=== PATIENT | male | born 2000 | race Caucasian/White ===

== ENCOUNTER 2019-01-01 19:53 | Emergency (ER) | payer BC ==
--- NOTE | 2019-01-01 20:24 | ER Report ---
History and Physical Time Seen By MD: 20:02 Hx. of Stated Complaint: PT WAS RUNNING ABOUT AN HOUR AGO. GOT A SUDDEN ONSET ON PAIN IN LEFT SIDE OF SACK THAT RUNS BACK TOWARDS HIS ANUS HPI/ROS CHIEF COMPLAINT: left testicular pain HISTORY OF PRESENT ILLNESS: 18 year old male presents to ED with left testicular pain. Patient reports he was playing frisbee and was running, jumped up to catch the frisbee, and then felt pain to his left testicle. He reports pain was very rapid onset, pain starts in his left testicle and radiates to his anus, and it hurts worse with movement. Pain started approximately 1 hour prior to coming to the ED. Pain subsides with rest. Patient denies saddle anesthesia, nausea, vomiting, fever. REVIEW OF SYSTEMS: Constitutional: No fever. Respiratory: No cough, no dyspnea. Cardiovascular: No chest pain, no palpitations. Gastrointestinal: No vomiting, no abdominal pain. Genitourinary: No difficulty urinating, no penile discharge, no saddle anesthesia. Musculoskeletal: No back pain. Left testicular pain as noted above. Allergies: Coded Allergies: No Known Drug Allergies (Unverified , 01/01/19) Past Medical/Surgical History Past medical hx significant for left wrist fracture. Past surgical hx significant for tonsillectomy and wisdom teeth removal. Reviewed Nurses Notes: Yes Hx Substance Use Disorder: No Hx Alcohol Use: Yes (SOCIALLY) Constitutional Vital Sign - Last 24 Hours 01/01/19 01/01/19 01/01/19 01/01/19 20:01 20:01 20:08 20:23 Temp 98.5 Pulse 81 ??? 77 Resp 12 B/P (MAP) 133/80 133/80 (97) Pulse Ox 93 94 93 O2 Delivery Room Air 01/01/19 01/01/19 01/01/19 01/01/19 20:30 20:38 20:53 21:00 Pulse ??? 74 B/P (MAP) 113/56 (75) 119/65 (83) Pulse Ox 93 01/01/19 01/01/19 01/01/19 01/01/19 21:08 21:23 21:30 21:38 Pulse ? B/P (MAP) 117/66 (83) Pulse Ox 93 7/6/19 01/01/19 01/01/19 01/01/19 21:43 21:58 22:00 22:13 Pulse ? B/P (MAP) 111/59 (76) Physical Exam General Appearance: The patient is alert, has no immediate need for airway protection and no current signs of toxicity. Eyes: Pupils equal and round no injection. Respiratory: Chest is non tender, lungs are clear to auscultation. Cardiac: regular rate and rhythm Gastrointestinal: Abdomen is soft and non tender, no masses, bowel sounds normal. Genitourinary: No testicular pain with palpation, no femoral lymph node enlargement, no swelling to testes, no lesions to penis. Musculoskeletal: Neck: Neck is supple and non tender. Extremities have full range of motion and are non tender. Skin: No rashes or lesions. DIFFERENTIAL DIAGNOSIS: After history and physical exam differential diagnosis was considered for testicular torsion, muscle strain, epididymitis. Medical Decision Making Data Points Result Diagram: 01/01/19210001/01/192100 Laboratory Hematology Test 01/01/19 20:01 01/01/19 21:01 Urine Color Yellow Urine Clarity Clear Urine pH 6.0 pH (4.8-9.5) Urine Specific [place] 1.014 Urine Protein Negative mg/dL (NEGATIVE) Urine Glucose (UA) Negative mg/dL (NEGATIVE) Urine Ketones Negative mg/dL (NEGATIVE) Urine Blood Negative (NEGATIVE) Urine Nitrite Negative (NEGATIVE) Urine Bilirubin Negative (NEGATIVE) Urine Urobilinogen Negative mg/dL (0.2-1.9) Urine Leukocyte Esterase Negative (NEGATIVE) Urine RBC <1 /HPF (0-2/HPF) Urine WBC 1 /HPF (0-5/HPF) Urine Squamous Epithelial Cells None /LPF (</=FEW) Urine Bacteria Negative /HPF (NONE-FEW) Urine Hyaline Casts Few /LPF (NONE-FEW) Urine Mucus None /HPF (NONE-FEW) Red Blood Count 4.80 M/uL (4.00-5.60) Mean Corpuscular Volume 89.6 fL (80.0-96.0) Mean Corpuscular Hemoglobin 31.9 pg (26.0-33.0) Mean Corpuscular Hemoglobin Concent 35.5 g/dL (32.0-36.0) Red Cell Distribution Width 13.1 % (11.5-14.5) Mean Platelet Volume 7.7 fL (7.2-11.1) Neutrophils (%) (Auto) 61.8 % (39.4-72.5) Lymphocytes (%) (Auto) 29.6 % (17.6-49.6) Monocytes (%) (Auto) 7.3 % (4.1-12.4) Eosinophils (%) (Auto) 0.9 % (0.4-6.7) Basophils (%) (Auto) 0.4 % (0.3-1.4) Nucleated RBC Relative Count (auto) 0.0 /100WBC Neutrophils # (Auto) 4.4 K/uL (2.0-7.4) Lymphocytes # (Auto) 2.1 K/uL (1.3-3.6) Monocytes # (Auto) 0.5 K/uL (0.3-1.0) Eosinophils # (Auto) 0.1 K/uL (0.0-0.5) Basophils # (Auto) 0.0 K/uL (0.0-0.1) Nucleated RBC Absolute Count (auto) 0.00 K/uL Sodium Level 142 mmol/L (137-145) Potassium Level 3.9 mmol/L (3.5-5.0) Chloride Level 105 mmol/L (98-107) Carbon Dioxide Level 24 mmol/L (22-30) Blood Urea Nitrogen 23 mg/dl (9-21) Creatinine 1.50 mg/dl (0.66-1.25) Glomerular Filtration Rate Calc 59.7 Random Glucose 96 mg/dl (75-110) Calcium Level 9.5 mg/dl (8.4-10.2) Total Bilirubin 0.4 mg/dl (0.2-1.3) Aspartate Amino Transf (AST/SGOT) 41 U/L (0-35) Alanine Aminotransferase (ALT/SGPT) 31 U/L (0-56) Alkaline Phosphatase 81 U/L (0-126) Total Protein 7.2 g/dl (6.3-8.2) Albumin 4.5 g/dl (3.5-5.0) Chemistry Test 01/01/19 20:01 01/01/19 21:01 Urine Color Yellow Urine Clarity Clear Urine pH 6.0 pH (4.8-9.5) Urine Specific [place] 1.014 Urine Protein Negative mg/dL (NEGATIVE) Urine Glucose (UA) Negative mg/dL (NEGATIVE) Urine Ketones Negative mg/dL (NEGATIVE) Urine Blood Negative (NEGATIVE) Urine Nitrite Negative (NEGATIVE) Urine Bilirubin Negative (NEGATIVE) Urine Urobilinogen Negative mg/dL (0.2-1.9) Urine Leukocyte Esterase Negative (NEGATIVE) Urine RBC <1 /HPF (0-2/HPF) Urine WBC 1 /HPF (0-5/HPF) Urine Squamous Epithelial Cells None /LPF (</=FEW) Urine Bacteria Negative /HPF (NONE-FEW) Urine Hyaline Casts Few /LPF (NONE-FEW) Urine Mucus None /HPF (NONE-FEW) White Blood Count 7.1 k/uL (4.5-11.0) Red Blood Count 4.80 M/uL (4.00-5.60) Hemoglobin 15.3 g/dL (14.0-18.0) Hematocrit 43.1 % (42.0-52.0) Mean Corpuscular Volume 89.6 fL (80.0-96.0) Mean Corpuscular Hemoglobin 31.9 pg (26.0-33.0) Mean Corpuscular Hemoglobin Concent 35.5 g/dL (32.0-36.0) Red Cell Distribution Width 13.1 % (11.5-14.5) Platelet Count 258 K/uL (150-450) Mean Platelet Volume 7.7 fL (7.2-11.1) Neutrophils (%) (Auto) 61.8 % (39.4-72.5) Lymphocytes (%) (Auto) 29.6 % (17.6-49.6) Monocytes (%) (Auto) 7.3 % (4.1-12.4) Eosinophils (%) (Auto) 0.9 % (0.4-6.7) Basophils (%) (Auto) 0.4 % (0.3-1.4) Nucleated RBC Relative Count (auto) 0.0 /100WBC Neutrophils # (Auto) 4.4 K/uL (2.0-7.4) Lymphocytes # (Auto) 2.1 K/uL (1.3-3.6) Monocytes # (Auto) 0.5 K/uL (0.3-1.0) Eosinophils # (Auto) 0.1 K/uL (0.0-0.5) Basophils # (Auto) 0.0 K/uL (0.0-0.1) Nucleated RBC Absolute Count (auto) 0.00 K/uL Glomerular Filtration Rate Calc 59.7 Calcium Level 9.5 mg/dl (8.4-10.2) Total Bilirubin 0.4 mg/dl (0.2-1.3) Aspartate Amino Transf (AST/SGOT) 41 U/L (0-35) Alanine Aminotransferase (ALT/SGPT) 31 U/L (0-56) Alkaline Phosphatase 81 U/L (0-126) Total Protein 7.2 g/dl (6.3-8.2) Albumin 4.5 g/dl (3.5-5.0) Urinalysis Test 01/01/19 20:01 Urine Color Yellow Urine Clarity Clear Urine pH 6.0 pH (4.8-9.5) Urine Specific [place] 1.014 Urine Protein Negative mg/dL (NEGATIVE) Urine Glucose (UA) Negative mg/dL (NEGATIVE) Urine Ketones Negative mg/dL (NEGATIVE) Urine Blood Negative (NEGATIVE) Urine Nitrite Negative (NEGATIVE) Urine Bilirubin Negative (NEGATIVE) Urine Urobilinogen Negative mg/dL (0.2-1.9) Urine Leukocyte Esterase Negative (NEGATIVE) Urine RBC <1 /HPF (0-2/HPF) Urine WBC 1 /HPF (0-5/HPF) Urine Squamous Epithelial Cells None /LPF (</=FEW) Urine Bacteria Negative /HPF (NONE-FEW) Urine Hyaline Casts Few /LPF (NONE-FEW) Urine Mucus None /HPF (NONE-FEW) EKG/Imaging Imaging PATIENT NAME: Waqas Yan : 2000 MR: [id number] V: [id number] EXAM DATE: ORDERING PHYSICIAN: JASON FORBES TECHNOLOGIST: Location: [facility] - [place] Patient: Waqas Yan : 2000 Visit/Account:[id number] Date of Sevice: 01/01/2019 SCROTAL ULTRASOUND INDICATION: Left testicular pain. COMPARISON: None available. FINDINGS: Right testicle measures 4.9 x 2.6 x 3.4 cm in cc, AP, and transverse dimensions respectively. There is normal arterial and venous blood flow. Small right hydrocele. No varicocele identified. The right epididymal head measures 1.4 cm. Normal blood flow. No focal abnormality. Left testicle measures 4.5 x 2.3 x 3.4 cm in cc, AP, and transverse dimensions respectively. There is normal arterial and venous blood flow. Small left hydrocele. No varicocele identified. The left epididymal head measures 1.3 cm. Normal blood flow. No focal abnormality. The bilateral testicles appear homogenous in echogenicity. IMPRESSION: 1. Normal blood flow within the bilateral testicles with no focal abnormality. 2. Small bilateral hydrocele. ED Course/Re-evaluation ED Course Upon arrival to the ED, patient admitted to an exam room, hx and physical obtained, differentials considered. Patient presents to ED wtih left testicular pain. Patient reports he was playing frisbee and was running, jumped up to catch the frisbee, and then felt pain to his left testicle. He reports pain was very rapid onset, pain starts in his left testicle and radiates to his anus, and it hurts worse with movement. Pain started approximately 1 hour prior to coming to the ED. Pain subsides with rest. Patient denies saddle anesthesia, difficulty urinating, nausea, vomiting, fever. Patient reports 1 sexual partner within the past 10 months. Denies hx of STDs and is not worried about STDs. On exam, heart rate and rhythm regular, lungs are clear. On exam, he has no testicular pain with palpation, no femoral lymph node enlargement, no swelling to testes, no lesions to penis. IV started. CBC, CMP, UA, and testicular US obtained. US showed normal blood flow within the bilateral testicles with no focal abnormality. There were small bilateral hydrocele. CBC, CMP, and UA benign. There was elevation in creatinine level, however after further questioning, patient does take a creatinine supplement. The likely cause of his testicular pain is from inflammation secondary to activity. Will have him take tylenol and ibuprofen for the pain and return if the pain becomes severe. Patient agrees with plan of care. Decision to Disposition Date: Jan 01, 2019 Decision to Disposition Time: 22:07 Depart Departure Latest Vital Signs Vital Signs Date Time Temp Pulse Resp B/P (MAP) Pulse Ox O2 Delivery O2 Flow Rate FiO2 01/01/19 22:13 ??? 01/01/19 22:00 111/59 (76) 01/01/19 21:08 93 01/01/19 20:01 98.5 12 Room Air Impression: Primary Impression: Testicular pain, left Condition: Improved Disposition: HOME OR SELF-CARE Patient Instructions: GENERAL ER DISCHARGE INSTRUCTIONS Additional Instructions: Please drink plenty of water and get plenty of rest. You may alternate tylenol and ibuprofen for pain relief. Follow-up with your primary care provider early next week, especially if the pain does not go away. Return to the ER if your pain worsens, you develop a fever, you have trouble urinating, or for any other concern. JASON FORBES Jan 01, 2019 20:24
[2019-01-01 21:41] LABS: PLATELET COUNT, AUTOMATED 258 K/uL (150-450)
--- NOTE | 2019-01-01 21:55 | RADIOLOGY IMAGING REPORT ---
FACILITY: [facility] - [place] PATIENT NAME: Waqas Yan : 2000 MR: [id number] V: [id number] EXAM DATE: ORDERING PHYSICIAN: JASON FORBES TECHNOLOGIST: Location: [facility] - [place] Patient: Waqas Yan : 2000 Visit/Account:[id number] Date of Sevice: 01/01/2019 SCROTAL ULTRASOUND INDICATION: Left testicular pain. COMPARISON: None available. FINDINGS: Right testicle measures 4.9 x 2.6 x 3.4 cm in cc, AP, and transverse dimensions respectively. There is normal arterial and venous blood flow. Small right hydrocele. No varicocele identified. The right epididymal head measures 1.4 cm. Normal blood flow. No focal abnormality. Left testicle measures 4.5 x 2.3 x 3.4 cm in cc, AP, and transverse dimensions respectively. There is normal arterial and venous blood flow. Small left hydrocele. No varicocele identified. The left epididymal head measures 1.3 cm. Normal blood flow. No focal abnormality. The bilateral testicles appear homogenous in echogenicity. IMPRESSION: 1. Normal blood flow within the bilateral testicles with no focal abnormality. 2. Small bilateral hydrocele. Report Dictated By: Fredy Martinez at 01/01/2019 9:39 PM Report E-Signed By: Fredy Martinez at 01/01/2019 9:50 PM WSN:[id number]
[2019-01-01 22:00] VITALS: BP 111/59
== END 2019-01-01 22:13 | disposition home or self-care (01) ==
LOC: ER 20:07
DX: N50.812 Left testicular pain (principal)
CPT/HCPCS: 76870; 81001; 82040; 82247; 82310; 82374; 82435; 82565; 82947; 84075; 84132; 84155; 84295; 84450; 84460; 84520; 85025; 87491; 87591; 99284